=== PATIENT | female | born 1995 | race Asian ===

== ENCOUNTER 2025-01-12 03:33 | Emergency (ER) | payer SELFPAY ==
[2025-01-12 03:44] VITALS: PULSE 91; RESP 16; O2SAT 99
== END 2025-01-12 04:32 | disposition left against medical advice (07) ==
LOC: ER 03:33
DX: R21 Rash and other nonspecific skin eruption (principal); Z53.21 Procedure and treatment not carried out due to patient leaving prior to being seen by health care provider